=== PATIENT | male | born 1985 ===

== ENCOUNTER 2017-03-17 19:21 | Emergency (ER) | payer OTHER ==
[2017-03-17 19:27] VITALS: BMI 40.3
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
[2017-03-17 19:31] VITALS: RESP 20; O2SAT 99
[2017-03-17] MEDS ORDERED: Oxycodone/Acetaminophen 5/325 mg Tab PO STA (19:41)
[2017-03-17 20:13] VITALS: BP 124/74; PULSE 74; TEMP 98
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
== END 2017-03-17 20:38 | disposition home or self-care (01) ==
LOC: ED 19:21 → MERGE 19:21 → ED 20:38
DX: Z04.1 Encounter for examination and observation following transport accident (principal); V49.59XA Passenger injured in collision with other motor vehicles in traffic accident, initial encounter; Y92.488 Other paved roadways as the place of occurrence of the external cause
CPT/HCPCS: 72110; 96372; 99283; J1885